=== PATIENT | male | born 1955 | race Caucasian/White ===

== ENCOUNTER 2017-04-09 07:53 | Inpatient (IN) | payer BC ==
[2017-04-09] VITALS (17 sets, daily range): BP systolic 106–163; BP diastolic 75–109
[~2017-04-09] VITALS: Ht 172.7 cm; Wt 97.7 kg
[2017-04-09] MEDS ORDERED: ZOLOFT25 MG PO (08:01)
[2017-04-09] MEDS ORDERED: RAMIPRIL2.5 MG PO (08:02)
[2017-04-09] MEDS ORDERED: OMEPRAZOLE10 MG PO (08:02)
[2017-04-09] MEDS ORDERED: ELIQUIS5 MG PO (08:03)
[2017-04-09] MEDS ORDERED: CRESTOR20 MG PO (08:03)
[2017-04-09] MEDS ORDERED: METOPROL TAR25 MG PO (08:03)
[2017-04-09 08:22] LABS: HEMATOCRIT 45.4 % (39.0-50.0); HEMOGLOBIN 14.7 g/dl (14.0-18.0); IMMATURE GRANULOCYTES 0.2 % (0.0-1.0); MEAN CORPUSCULAR HGB 30.8 pG CALC (26.0-32.0); MEAN CORPUSCULAR HGB CONC 32.4 g/L CALC (32.0-36.0); NEUT# 8.21 thou/uL (1.82-7.42); RED BLOOD COUNT 4.78 mill/uL (4.70-6.10); RED CELL DISTRI WIDTH 13.6 % (11.5-15.5)
[2017-04-09 08:44] LABS: ALBUMIN 4.4 g/dL (3.2-5.0); ALKALINE PHOSPHATASE 144 u/l (38-126); ANION GAP 18 (6-22 (CALC)); BILIRUBIN, TOTAL 0.6 mg/dL (0.0-1.4); BUN 14 mg/dL (8-23); BUN/CREATININE RATIO 13 (12-20 (CALC)); CALCIUM 9.5 mg/dL (8.4-10.2); CARBON DIOXIDE 24 mmol/l (22-30); CHLORIDE 106 mmol/l (95-108); CREATININE 1.1 mg/dL (0.7-1.3); GFR > 60 ML/MIN (>=60 (CALC)); GFR FOR AFR.AMER. > 60 ML/MIN (>=60 (CALC)); GLUCOSE 168 mg/dL (82-115); POTASSIUM 4.6 mmol/l (3.5-5.1); SGOT/AST 24 u/l (19-48); SGPT/ALT 39 u/l (11-66); SODIUM 143 mmol/l (137-146); TOTAL PROTEIN 7.2 g/dL (6.3-8.2)
[2017-04-09 08:55] LABS: MYOGLOBIN 41 ng/mL (0 - 121)
[2017-04-09 10:10] LABS: URINE BILIRUBIN - DIPSTICK NEGATIVE (NEGATIVE); URINE BLOOD DIPSTICK NEGATIVE (NEGATIVE); URINE COLOR YELLOW; URINE GLUCOSE - DIPSTICK NEGATIVE (NEGATIVE); URINE KETONE NEGATIVE (NEGATIVE); URINE LEUK ESTERASE NEGATIVE (NEGATIVE); URINE NITRITE - DIPSTICK NEGATIVE (Negative); URINE PROTEIN - DIPSTICK NEGATIVE (NEG-TRACE); URINE SPECIFIC GRAVITY <=1.005; URINE UROBILINOGEN - DIPSTICK 0.2 E.U./dL (0.2)
[2017-04-09 10:14] LABS: URINE CLARITY CLEAR
[2017-04-10] VITALS (13 sets, daily range): BP systolic 133–160; BP diastolic 80–110
[2017-04-10 06:21] LABS: HEMATOCRIT 40.9 % (39.0-50.0); HEMOGLOBIN 13.4 g/dl (14.0-18.0); IMMATURE GRANULOCYTES 0.4 % (0.0-1.0); MEAN CELL VOLUME 94.2 fL CALC (80.0-100.0); MEAN CORPUSCULAR HGB 30.9 pG CALC (26.0-32.0); MEAN CORPUSCULAR HGB CONC 32.8 g/L CALC (32.0-36.0); NEUT# 6.74 thou/uL (1.82-7.42); RED BLOOD COUNT 4.34 mill/uL (4.70-6.10); RED CELL DISTRI WIDTH 13.6 % (11.5-15.5)
[2017-04-10 06:50] LABS: ANION GAP 16 (6-22 (CALC)); BUN 15 mg/dL (8-23); BUN/CREATININE RATIO 15 (12-20 (CALC)); CALCIUM 9.3 mg/dL (8.4-10.2); CARBON DIOXIDE 23 mmol/l (22-30); CHLORIDE 108 mmol/l (95-108); GFR > 60 ML/MIN (>=60 (CALC)); GFR FOR AFR.AMER. > 60 ML/MIN (>=60 (CALC)); GLUCOSE 121 mg/dL (82-115); POTASSIUM 4.5 mmol/l (3.5-5.1); SODIUM 142 mmol/l (137-146)
[2017-04-11 04:09] VITALS: BP 137/84
[2017-04-11 05:52] LABS: HEMATOCRIT 42.1 % (39.0-50.0); HEMOGLOBIN 14.1 g/dl (14.0-18.0); MEAN CELL VOLUME 93.1 fL CALC (80.0-100.0); MEAN CORPUSCULAR HGB 31.2 pG CALC (26.0-32.0); MEAN CORPUSCULAR HGB CONC 33.5 g/L CALC (32.0-36.0); RED BLOOD COUNT 4.52 mill/uL (4.70-6.10); RED CELL DISTRI WIDTH 13.6 % (11.5-15.5)
[2017-04-11 06:22] LABS: ANION GAP 17 (6-22 (CALC)); BUN 16 mg/dL (8-23); BUN/CREATININE RATIO 15 (12-20 (CALC)); CALCIUM 9.2 mg/dL (8.4-10.2); CARBON DIOXIDE 24 mmol/l (22-30); CHLORIDE 104 mmol/l (95-108); CREATININE 1.1 mg/dL (0.7-1.3); GFR > 60 ML/MIN (>=60 (CALC)); GFR FOR AFR.AMER. > 60 ML/MIN (>=60 (CALC)); GLUCOSE 114 mg/dL (82-115); POTASSIUM 4.5 mmol/l (3.5-5.1); SODIUM 140 mmol/l (137-146)
[2017-04-11 07:30] VITALS: BP 168/83
[2017-04-11 08:41] VITALS: BP 168/83
[2017-04-11] MEDS ORDERED: ALDACTONE25 MG PO (11:36)
[2017-04-11] MEDS ORDERED: CORDARONE/200 MG/TAB PO (11:36)
[2017-04-11] MEDS ORDERED: LASIX 40 MG40 MG/TAB PO (11:36)
== END 2017-04-11 13:40 | disposition home or self-care (01) | DRG 308 ==
LOC: ED 07:53 → ED-I 08:58 → ICU 09:19 → ED 09:19 → MS2 04-10 17:27
PROVIDERS: Emergency Medicine; Nurse Practitioner Family; ADMIT Internal Medicine; ATTEND Internal Medicine
DX: I48.1 Persistent atrial fibrillation (principal); I50.33 Acute on chronic diastolic (congestive) heart failure; I16.0 Hypertensive urgency; I11.0 Hypertensive heart disease with heart failure; Z95.1 Presence of aortocoronary bypass graft; E78.5 Hyperlipidemia, unspecified; I25.119 Atherosclerotic heart disease of native coronary artery with unspecified angina pectoris; I25.10 Atherosclerotic heart disease of native coronary artery without angina pectoris; K21.9 Gastro-esophageal reflux disease without esophagitis; Z68.33 Body mass index [BMI] 33.0-33.9, adult; Z82.49 Family history of ischemic heart disease and other diseases of the circulatory system; Z87.891 Personal history of nicotine dependence; Z79.01 Long term (current) use of anticoagulants

== ENCOUNTER 2020-06-28 08:14 | Day surgery (SDC) | payer MEDICARE, BC ==
[~2020-06-28] VITALS: Ht 172.7 cm; Wt 102.1 kg
[~2020-06-28 08:14] MED LIST: ALDACTONE25 MG PO; CORDARONE/200 MG/TAB PO; CRESTOR20 MG PO; ELIQUIS5 MG PO; LASIX 40 MG40 MG/TAB PO; METOPROL TAR25 MG PO; OMEPRAZOLE10 MG PO; RAMIPRIL2.5 MG PO; ZOLOFT25 MG PO
[2020-06-28] MEDS ORDERED: OMEPRAZOLE DR40 MG PO (09:51)
[2020-06-28] MEDS ORDERED: STATIN MEDICATION PO (09:52)
[2020-06-28] MEDS ORDERED: DIABETES PILL PO (09:53)
[2020-06-28 11:31] VITALS: BP 127/61
[2020-06-28] MEDS ORDERED: NORCO1 TA2 PO ×2 (11:58→12:00)
== END 2020-06-28 12:10 | disposition home or self-care (01) ==
LOC: ORM 08:14
PROVIDERS: ATTEND Anesthesiology Pain Medicine
DX: M46.1 Sacroiliitis, not elsewhere classified (principal); M54.5 Low back pain; M60.88 Other myositis, other site; M76.00 Gluteal tendinitis, unspecified hip; Z01.84 Encounter for antibody response examination

== ENCOUNTER 2021-07-05 07:30 | Day surgery (SDC) | payer MEDICARE, BC ==
[~2021-07-05 07:30] MED LIST changes: +ASPIRIN81 MG PO; +DIABETES PILL PO; +LASIX 40 MG TAB40 MG PO; +METFORMIN500 M2 PO; +MULTAQ400 MG PO; +NORCO1 TA2 PO; +OMEPRAZOLE DR40 MG PO; +ROSUVASTATIN CA20 MG PO; +SERTRALINE50 MG PO; +SPIRONOLACT25 MG PO; +STATIN MEDICATION PO
[2021-07-05 10:04] VITALS: BP 115/65
== END 2021-07-05 10:22 | disposition home or self-care (01) ==
LOC: ENDO 07:30 → ORM 08:00 → ENDO 09:20 → ORM 10:15 → ENDO 10:22
PROVIDERS: ATTEND Surgery
PROC: 0DBH8ZX Excision of Cecum, Via Natural or Artificial Opening Endoscopic, Diagnostic (ICD-10-PCS; principal; 2021-07-05)
PROC: 0DBL8ZX Excision of Transverse Colon, Via Natural or Artificial Opening Endoscopic, Diagnostic (ICD-10-PCS; 2021-07-05)
DX: Z12.11 Encounter for screening for malignant neoplasm of colon (principal); D12.0 Benign neoplasm of cecum; D12.3 Benign neoplasm of transverse colon; K64.8 Other hemorrhoids; I10 Essential (primary) hypertension; I48.91 Unspecified atrial fibrillation; K21.9 Gastro-esophageal reflux disease without esophagitis; E11.9 Type 2 diabetes mellitus without complications; F17.200 Nicotine dependence, unspecified, uncomplicated; Z79.01 Long term (current) use of anticoagulants; Z86.010 Personal history of colon polyps